=== PATIENT | female | born 1990 | race African-American/Black ===

== ENCOUNTER 2019-04-27 17:36 | Emergency (ER) | payer MEDICAID ==
[~2019-04-27] VITALS: Ht 152.4 cm; Wt 67.0 kg
[2019-04-27] MEDS ORDERED: METOCLOPRAMIDE HCL 10MG/2ML VIAL IV STA (23:28)
[2019-04-27] MEDS ORDERED: MORPHINE SULFATE 4 MG/ML CPJ (NOT FOR IM USE) IV STA (23:28)
[2019-04-27] MEDS ORDERED: IBUPROFEN 600MG TABLET PO ONE (23:30)
[2019-04-27 23:46] LABS: BASOPHILS % 1.4 % (0.0-2.0); EOSINOPHILS % 2.4 % (0.0-5.0); HEMATOCRIT. 40.5 % (36.0-48.0); HEMOGLOBIN. 13.8 g/dL (12.0-16.0); LYMPHOCYTES % 42.1 % (20.0-50.0); MEAN CORPUSCULAR HEMOGLOBIN 30.9 pg (28.0-32.0); MEAN CORPUSCULAR VOLUME 90.4 fL (81.0-99.0); MEAN PLATELET VOLUME 8.4 fl (7.4-10.4); MONOCYTES % 10.8 % (2.0-8.0); NEUTROPHILS % 43.3 % (40.0-76.0); PLATELET 278 x1000/uL (130-400); RED BLOOD CELL COUNT 4.48 mill/uL (4.2-5.4)
[2019-04-27 23:51] LABS: CLARITY URINE CLEAR (CLEAR); COLOR URINE YELLOW (YELLOW); KETONES URINE NEGATIVE (NEGATIVE); LEUKOCYTE ESTERASE URINE NEGATIVE (NEGATIVE); NITRITE URINE NEGATIVE (NEGATIVE); OCCULT BLOOD URINE NEGATIVE (NEGATIVE); PROTEIN URINE NEGATIVE (NEGATIVE)
[2019-04-27 23:53] LABS: CHLORIDE 106 mEq/L (98-107)
[2019-04-28 01:20] VITALS: BP 120/78
== END 2019-04-28 01:46 | disposition left against medical advice (07) ==
LOC: ER 17:36
DX: R10.31 Right lower quadrant pain (principal); R10.2 Pelvic and perineal pain
CPT/HCPCS: 36415; 76830; 76856; 80053; 81003; 81025; 85025; 96374; 99284; J2270; J2765; Z7610

== ENCOUNTER 2019-07-27 08:49 | Emergency (ER) | payer OTHER, MEDICAID ==
[~2019-07-27] VITALS: Ht 172.7 cm; Wt 71.0 kg
[2019-07-27] MEDS ORDERED: IPRATROPIUM BROMIDE (0.02%) 0.5MG/2.5ML NEB HHN STA ×2 (09:30→11:02)
[2019-07-27] MEDS ORDERED: PREDNISONE 20MG TABLET PO STA (09:30)
[2019-07-27] MEDS ORDERED: ALBUTEROL (0.083%) 2.5MG/3ML NEB HHN STA ×2 (09:30→11:02)
[2019-07-27 10:38] LABS: BASOPHILS % 1.3 % (0.0-2.0); EOSINOPHILS % 6.3 % (0.0-5.0); HEMATOCRIT. 42.2 % (36.0-48.0); HEMOGLOBIN. 14.3 g/dL (12.0-16.0); LYMPHOCYTES % 20.6 % (20.0-50.0); MEAN CORPUSCULAR HEMOGLOBIN 30.4 pg (28.0-32.0); MEAN PLATELET VOLUME 9.1 fl (7.4-10.4); MONOCYTES % 11.5 % (2.0-8.0); NEUTROPHILS % 60.3 % (40.0-76.0); PLATELET 206 x1000/uL (130-400); RED BLOOD CELL COUNT 4.69 mill/uL (4.2-5.4); RED CELL DISTRIBUTION WIDTH 13.5 % (11.6-14.6)
[2019-07-27 10:42] LABS: CHLORIDE 110 mEq/L (98-107)
[2019-07-27] MEDS ORDERED: SODIUM CHLORIDE 0.9% 1,000 ML IV ONE (11:02)
[2019-07-27 12:40] VITALS: BP 122/66
== END 2019-07-27 12:42 | disposition home or self-care (01) ==
LOC: ER 08:49
DX: J45.901 Unspecified asthma with (acute) exacerbation (principal)
CPT/HCPCS: 36415; 71045; 80053; 81025; 85025; 94640; 99284; J7030; J7512; J7611; Z7610